=== PATIENT | male | born 1975 | race Caucasian/White ===

== ENCOUNTER 2023-09-11 10:59 | Emergency (ER) | payer SELFPAY ==
--- NOTE | ~2023-09-11 | XR_ITS ---
EXAMINATION: XR chest 2V DATE: 09/11/2023 13:16 INDICATION: Sensation of nausea and upper chest/throat TECHNIQUE: PA and lateral views of the chest are obtained. COMPARISON: None available FINDINGS: The lungs are free of acute opacities. No pleural effusion or pneumothorax. The cardiomedia stinal silhouette is normal. There is mild thoracic spondylosis. IMPRESSION: 1. No acute cardiopulmonary abnormality. No radiographic correlate for the patient's symptoms. Reviewed, dictated and finalized at location [facility] [employer] IMPRESSION: 1. No acute cardiopulmonary abnormality. No radiographic correlate for the sang ent's symptoms.
[2023-09-11 11:01] VITALS: BP 149/86; PULSE 67; RESP 16; TEMP 37; O2SAT 100
--- NOTE | 2023-09-11 13:43 | ED.GENADULT ---
HPI - General Adult General Chief complaint: Unspecified Stated complaint: throat problem Time Seen by Provider: 09/11/23 12:22 History of Present Illness HPI narrative: Patient presents the emergency department with concern for chest mass. For the past month he feels like it has been getting gradually worse. He has a sensation that something is in his chest . Denies specific pain or shortness of breath. Denies fevers and chills. Patient is normally healthy Related Data Allergies Allergy/AdvReac Type Severity Reaction Status Date / Time No Known Allergies Allergy Verified 09/11/23 11:00 Review of Systems Review of Systems: CONSTITUTIONAL: Denies fever, chills, or sweats. EYES: Denies visual changes, redness, or discharge. ENT: Denies rhinorrhea, congestion, sore throat, or otalgia. CARDIOVASCULAR: Denies chest pain, palpitations, or edema. RESPIRATORY: Denies cough or dyspnea. GASTROINTESTINAL: Denies abdominal pain, nausea, vomiting, or diarrhea. GENITOURINARY: Denies dysuria or hematuria. SKIN: Denies rash or itching. MUSCULOSKELETAL: Denies back pain, joint pain, or myalgia. NEUROLOGIC: Denies headache, numbness, or weakness. PSYCHIATRIC: Denies anxiety or depression. Exam Narrative: insert normal exam Course Course Emergency Course: vital signs stable with mild hypertension. Likely related to being in the emergency department. Chest x-ray negative for any acute findings. Will DC patient with advise to follow-up with his primary care provider Vital Signs Vital signs: Vital Signs Temperature 37.0 C 09/11/23 11:01 Pulse Rate 67 09/11/23 11:01 Respiratory Rate 16 09/11/23 11:01 Blood Pressure 149/86 H 09/11/23 11:01 Pulse Oximetry 100 09/11/23 11:01 Oxygen Delivery Room Air 09/11/23 11:01 Temperature 37.0 C 09/11/23 11:01 Pulse Rate 67 09/11/23 11:01 Respiratory Rate 16 09/11/23 11:01 Blood Pressure 149/86 H 09/11/23 11:01 Pulse Oximetry 100 09/11/23 11:01 Oxygen Delivery Room Air 09/11/23 11:01 Medical Decision Making Vital Signs Vital Signs: Vital Signs Temperature 37.0 C 09/11/23 11:01 Pulse Rate 67 09/11/23 11:01 Respiratory Rate 16 12/19/23 11:01 Blood Pressure 149/86 H 09/11/23 11:01 Pulse Oximetry 100 09/11/23 11:01 Oxygen Delivery Room Air 09/11/23 11:01 Temperature 37.0 C 09/11/23 11:01 Pulse Rate 67 09/11/23 11:01 Respiratory Rate 16 09/11/23 11:01 Blood Pressure 149/86 H 09/11/23 11:01 Pulse Oximetry 100 09/11/23 11:01 Oxygen Delivery Room Air 09/11/23 11:01 Discharge Plan Discharge Clinical Impression: Normal chest x-ray Patient Disposition: Home, Self-Care Condition: Stable Additional Instructions: Follow up with your physician if symptoms persist for repeat xray in 3-6 months Follow-up/Referrals: Harpreet Trejo MD [Physician] - Mariangel Mendoza MD [Emergency Provider] - UNKNOWN,DOCTOR [Primary Care Provider] - Time of Disposition: 13:51
== END 2023-09-11 14:02 | disposition home or self-care (01) ==
PROVIDERS: Emergency Provider Emergency Medicine
DX: I10 Essential (primary) hypertension (principal); Z03.89 Encounter for observation for other suspected diseases and conditions ruled out
CPT/HCPCS: 71046; 99283